=== PATIENT | female | born 1950 | race Caucasian/White ===

== ENCOUNTER 2020-03-22 18:46 | Observation (INO) | payer MEDICARE, OTHER, SELFPAY ==
[2020-03-22] VITALS (7 sets, daily range): BP systolic 107–159; BP diastolic 47–88; PULSE 88–112; RESP 16; TEMP 36.6–37.3; O2SAT 95–98; BMI 41.4
--- NOTE | 2020-03-22 19:18 | CT_ITS ---
We are attempting to reach an attending provider to discuss findings. An addendum with communication details will be sent when the communication is complete. HISTORY: PT STATED RLQ PAIN, HX BREAST CA, HTN TECHNIQUE: Helically acquired images were obtained of the abdomen and pelvis following the intravenous administration of 100 ML of Isovue 300 Iodinated contrast. 2D reformats. No oral contrast was administered. A radiation dose optimization technique was used for this scan. COMPARISON: None FINDINGS: # of images incl. paperwork: 462 LUNG BASES: Clear. CT abdomen: Multilevel degenerative disc disease with facet arthropathy.. The gallbladder remains. Liver, spleen, pancreas, and adrenal glands, are normal. The kidneys are normal. The aorta is normal. CT pelvis: No ascites is present. The the uterus and ovaries are not pathologically enlarged. The appendix is distended and filled with fluid with a large appendicolith. The appendix diameter is 18 mm. There is a surrounding indurated tissue without free air or abscess. The bladder is decompressed. Diverticulosis within the sigmoid colon without diverticulitis CT/Abdomen/Pelvis W IV Cont ONLY IMPRESSION: Acute nonperforated appendicitis with appendicolith. Scoliosis Individualized dose optimization techniques were used for this CT. at 2029 Reported and signed by: Josr Perez MD Electronically Signed: Josr Perez MD at 20:28 EDT Tel , Service support ,
[2020-03-22] MEDS: 0.9% Normal Saline 1,000 ML 1000 ML IV (19:31)
[2020-03-22] MEDS: Morphine 4 MG/ML Syringe IV ×2 (19:32→21:29)
[2020-03-22] MEDS: Ondansetron 4 MG/2 ML Vial IV (19:32)
--- NOTE | 2020-03-22 19:34 | ED.VIS.GI ---
History of Present Illness Chief Complaint: Abd Pain Informant: Patient - Abdominal Pain/Flank Pain Onset: Today Context: Gradual Onset Timing: Continuous Quality: Aching Location: RLQ Current Severity: Severe - Nausea/Vomiting/Emesis GI Symptom: Nausea, Vomiting - x1 Onset: Today Quality: Nonbilious - Diarrhea/Melena/Hematochezia GI Symptom: Negative for: Diarrhea, Melena, Hematochezia Associated Symptoms: Negative for: Dysuria, Frequency, Hematuria, Urgency Narrative: Patient is a 69-year-old female presenting with right lower quadrant abdominal pain. Patient states she noticed it this morning around 10:30 AM. She states that it started when they are driving in the car. It was more diffuse and then localized to her right lower quadrant. She said pain is become more persistent and severe as the days progressed. She has had associated nausea and one episode of yellow phlegm-like vomit. Her bowel movements been normal and she is had 2 bowel movements today. No black or blood in her stool. No urinary symptoms. She not take anything for the pain prior to arrival. She denies any history of any abdominal surgeries. She denies any urinary symptoms. No other complaints at this time. Past Medical History - Allergies and Home Meds Allergies/Adverse Reactions: Allergies quinapril [From Accupril] Adverse Reaction (Verified 03/22/20 18:47) COUGH Primary Care Physician: Queenie Bowling MD [Primary Care Provider] - Past Medical History: - - Hypertension, hypothyroid, history of breast cancer status post lumpectomy Surgical History: - - Breast lumpectomy- Dr. Pagan Lives: Spouse/ Significant Other Smoking Status: Never smoker Review of Systems General: Denies: Chills, Fever, Sweats Eyes: Denies: Visual changes - bilaterally, Diplopia ENT: Denies: Rhinorrhea, Sore throat Cardiovascular: Denies: Chest pain, Palpitations Respiratory: Denies: Dyspnea, Cough, Dyspnea on exertion Gastrointestinal: Reports: Abdominal pain, Nausea, Vomiting. Denies: Diarrhea, Melena, Hematochezia Genitourinary: Denies: Dysuria, Hematuria, Frequency Musculoskeletal: Denies: Back pain, Extremity Pain Skin: Denies: Rash, Wounds Neurological: Denies: Headache, Weakness, Numbness Physical Exam Vital Signs/Narrative: Vital Signs Temp Pulse Resp BP Pulse Ox 03/22/20 18:47 97.8 F 112 H 16 159/88 H 95 Inital Vital Signs reviewed: Yes General: Well nourished, Well developed, No Acute Distress Head: Normocephalic, Atraumatic Eyes: Perrl, EOMI ENT: Moist mucous membranes, No rhinorrhea Neck: Supple, Nontender Cardiovascular: Regular rate, Regular rhythm, No murmurs Respiratory: No distress, CTA bilaterally, Chest nontender Abdomen: Soft, Nondistended, Tender - Right lower quadrant, Hypoactive bowel sounds, Rovsig's sign, - - Pain at McBurney's point. Negative for: Rebound tenderness, Psoas sign, Obturator sign Back: Nontender, Normal Inspection. Negative for: CVA tenderness Extremities: Nontender, No edema Skin: Normal color, No rash Neurological: Alert, Oriented x3, Cranial nerves II-XII grossly intact, Normal Strength, Normal Sensation Psychological: Normal affect, Normal Mood Diagnostic/Tx/Re-eval Clinical Impression(s) from Imaging Studies Abdomen/Pelvis CT 03/22/20 19:18 IMPRESSION: Acute nonperforated appendicitis with appendicolith. Scoliosis Individualized dose optimization techniques were used for this CT. at 9 Reported and signed by: Josr Perez MD Electronically Signed: Josr Perez MD at 20:28 EDT Tel , Service support , Laboratory Data 03/22/20 03/22/20 03/22/20 18:20 18:20 19:45 WBC 14.5 H RBC 4.44 Hgb 12.9 Hct 39.4 MCV 88.7 MCH 29.1 MCHC 32.7 RDW Std Deviation 42.8 RDW Coeff of Mey 13.2 Plt Count 233 MPV 11.2 Immature Gran % (Auto) 0.400 Neut % (Auto) 85.5 H Lymph % (Auto) 7.2 L [place] % (Auto) 6.4 Eos % (Auto) 0.3 Baso % (Auto) 0.2 Absolute Neuts (auto) 12.4 H Absolute Lymphs (auto) 1.05 Nucleated RBC % 0 Sodium 139 Potassium 3.2 L Chloride 103 Carbon Dioxide 28.0 Anion Gap 8 BUN 14 Creatinine 0.84 Estim Creat Clear Calc 60.60 Est GFR (MDRD) Af Amer 86 Est GFR (MDRD) Non-Af 71 BUN/Creatinine Ratio 16.7 Glucose 164 H Calcium 9.3 Total Bilirubin 0.60 AST 20 ALT 24 Alkaline Phosphatase 94 Total Protein 7.7 Albumin 3.6 Globulin 4.1 Albumin/Globulin Ratio 0.9 Lipase 96 Urine Color Yellow Urine Clarity Sl. Cloudy Urine pH 5.0 Ur Specific [place] 1.020 Urine Protein Negative Urine Glucose (UA) Normal Urine Ketones 5 H Urine Occult Blood 10 H Urine Nitrite Negative Urine Bilirubin Negative Urine Urobilinogen Normal Ur Leukocyte Esterase 500 H Urine RBC 0-5 SEEN Urine WBC 5-10 SEEN Ur Squamous Epith Cells 0-5 SEEN Urine Bacteria 0 SEEN Urine Mucus 0 SEEN - Medical Decision Making Patient evaluated for 1 day of worsening right lower quadrant abdominal pain. Physical exam is consistent with appendicitis however patient does not have an acute abdomen or peritoneal signs. She does have a leukocytosis. Patient does have elevated leukoesterase but minimal white blood cells in her urine. I think this is more reactive. CT of the abdomen pelvis is consistent with acute appendicitis with an enlarged appendix 18 mm in diameter. Initially contacted the patient's personal surgeon, Dr. Pagan who deferred care to surgery on-call, Dr. Bush. Eleazar came to the emergency room to evaluate the patient and is planning for surgical removal of the appendix. Patient is given IV Zosyn and is redosed with morphine in the ER. Per hospital protocol, Pre-op COVID test is sent. Patient is stable at time of disposition. ED Disposition - Plan for ED Patient: Disposition: Acute Care Hospital [facility] Diagnosis: Acute appendicitis, Leukocytosis Referrals: Queenie Bowling MD [Primary Care Provider] -
[2020-03-22 19:38] LABS: Absolute Lymphocyte Count 1.05 X10^3/uL (0.83-4.51); Absolute Neutrophil Count 12.4 X10^3/uL (2.0-7.7); Basophil# 0.03 X10^3/uL; Basophil% 0.2 % (0-1); Eosinophil# 0.04 X10^3/uL; Eosinophils% 0.3 % (0-5); Hematocrit 39.4 % (37-47); Hemoglobin 12.9 g/dL (12.0-15.0); Lymphocyte # 1.05 X10^3/ul (4.0); Lymphocyte % 7.2 % (19-41); Mean Corp Hgb Conc 32.7 g/dL (32-36); Mean Corpuscular Hgb 29.1 pg (27.0-32.0); Mean Corpuscular Volume 88.7 fL (81-99); Mean Platelet Vol. 11.2 fl (6.2-12.0); Monocyte# 0.93 X10^3/uL; Monocyte% 6.4 % (0-10); NRBC Flagged by Analyzer 0 % (0-5); Neutrophil # 12.38 X10^3/uL (2.7-7.7); Neutrophil % 85.5 % (47-70); Platelet Count 233 K/mm3 (150-450); RBC Distribution Width CV 13.2 % (11.6-14.6); RBC Distribution Width SD 42.8 fl (35.1-43.9); Red Blood Count 4.44 M/mm3 (4.2-5.4); White Blood Count 14.5 K/mm3 (4.4-11.0)
[2020-03-22 19:51] LABS: ALB/GLOB Ratio 0.9 RATIO (0.9-2.4); AST(SGOT) 20 U/L (15-37); Alanine Aminotransfer ALT/SGPT 24 U/L (13-56); Albumin, Serum 3.6 g/dL (3.2-5.0); Alkaline Phosphatase 94 U/L (45-117); Anion Gap 8 (5-15); BUN 14 mg/dL (7-18); BUN/Creat Ratio 16.7 RATIO (10-20); Calcium,Total 9.3 mg/dL (8.5-10.1); Chloride 103 mmol/L (98-107); Creatinine, Serum 0.84 mg/dL (0.55-1.02); EST Glomerular Filtration Rate 71 mL/min (>60); Est Glom Filt Rate - Afr Amer 86 mL/min (>60); Globulin 4.1 g/dL (2.2-4.2); Glucose 164 mg/dL (74-106); Lipase 96 U/L (73-393); Potassium 3.2 mmol/L (3.5-5.1); Protein, Total 7.7 g/dL (6.4-8.2); Sodium Level 139 mmol/L (136-145)
[2020-03-22 19:53] LABS: Bacteria 0 SEEN /hpf (None Seen); Mucous, Urine 0 SEEN /hpf (<or=2+)
[2020-03-22 19:54] LABS: Color, Urine Yellow (Yellow); Glucose, Dipstick Normal (Normal); Ketone-Dipstick 5 mg/dl (Negative); Leukocyte Esterase-Dipstick 500 /ul (Negative); Nitrite-Dipstick Negative (Negative); Occult Blood-Urine 10 /ul (Negative); Protein-Dipstick Negative (Negative); Urine Bilirubin Dipstick Negative (Negative); Urine Clarity Sl. Cloudy (Clear); Urine Urobilinogen Normal (Normal)
[2020-03-22 20:00] LABS: White Blood Cells 5-10 SEEN /hpf (0-5)
[2020-03-22 20:01] LABS: Red Blood Cells-Urine 0-5 SEEN /hpf (0-5); Squamous Epithelial Cells - UA 0-5 SEEN /hpf (5-10)
--- NOTE | 2020-03-22 21:18 | PCM.CONS.GEN ---
Problem List (1) Acute appendicitis Status: Acute Qualifiers: Acute appendicitis type: with localized peritonitis Appendicitis gangrene presence: unspecified whether gangrene present Appendicitis perforation presence: unspecified whether perforation present Appendicitis abscess presence: without abscess Qualified Code(s): K35.30 - Acute appendicitis with localized peritonitis, without perforation or gangrene Reason for Consult Date of Consultation: 03/22/20 History of Present Illness: Patient is a 69-year-old female presenting with right lower quadrant abdominal pain. Patient states she noticed it this morning around 10:30 AM. She states that it started when they are driving in the car. It was more diffuse and then localized to her right lower quadrant. She said pain is become more persistent and severe as the days progressed. She has had associated nausea and one episode of yellow phlegm-like vomit. Her bowel movements been normal and she is had 2 bowel movements today. No black or blood in her stool. No urinary symptoms. She not take anything for the pain prior to arrival. She denies any history of any abdominal surgeries. She denies any urinary symptoms. No other complaints at this time. CT pelvis: No ascites is present. The the uterus and ovaries are not pathologically enlarged. The appendix is distended and filled with fluid with a large appendicolith. The appendix diameter is 18 mm. There is a surrounding indurated tissue without free air or abscess. The bladder is decompressed. Diverticulosis within the sigmoid colon without diverticulitis 03/22/202027 Date cc: Queenie Bowling MD; Dr. Isamar Dhaliwal, DO ~* Signed ADDENDUM by Dr. Josr Perez MD on 03/22/[address]/Abdomen/Pelvis W IV Cont ONLY IMPRESSION: Acute nonperforated appendicitis with appendicolith. Scoliosis Individualized dose optimization techniques were used for this CT. at 2028 Reported and signed by: Josr Perez MD Past Medical History Allergies quinapril [From Accupril] Adverse Reaction (Verified 03/22/20 18:47) COUGH Home Medications: Ambulatory Orders Medication Instructions Recorded Cholecalciferol (VIT D3) [Vitamin 1,000 unit PO DAILY 08/06/16 D] Levothyroxine [Synthroid] 88 mcg PO DAILY 08/06/16 Metoprolol Tartrate [Lopressor 50 mg PO BID 08/06/16 (Beta Anthony)] Potassium Chloride [Klor-Con 10] 10 meq PO DAILY 08/06/16 Amlodipine [Norvasc] 5 mg PO DAILY 03/22/20 Letrozole 1 tab PO DAILY 03/22/20 Losartan Potassium [Cozaar] 200 mg PO DAILY 03/22/20 Surgical History: - - Breast lumpectomy- Dr. Pagan Lives: Spouse/ Significant Other Smoking Status: Never smoker - *Family History Maternal History Items: No pertinent history Review of Systems Constitutional: Reports: Anorexia, Chills Cardiovascular: Denies: Chest Pain, Chest Pressure, Chest Tightness, Palpitations Respiratory: Denies: Cough, Hemoptysis, Shortness of breath at rest, Shortness of breath upon exertion, Wheezing Gastrointestinal: Reports: Abdominal Pain. Denies: Hematemesis, Hematochezia, Nausea, Vomiting Patient Problems: Active and Suspected Problems Acute appendicitis (Acute) Leukocytosis (Acute) - Physical Exam Vitals/I&O's: Vital Signs Temp Pulse Resp BP Pulse Ox 97.8 F 112 H 16 159/88 H 95 03/22/20 18:47 03/22/20 18:47 03/22/20 18:47 03/22/20 18:47 03/22/20 18:47 Oxygen Delivery Method Room Air Weight: 264 lb 8.875 oz Body Mass Index (BMI) 41.4 General: Alert, Oriented x3 HEENT: Atraumatic, PERRLA, EOMI, Normocephalic Neck: Supple, No JVD Lungs: Clear to auscultation Cardiovascular: Regular rate, Regular Rhythm, No murmurs Abdomen: Obese, Tender - Patient does have peritoneal signs. Positive Rovsing sign. Skin: No rashes, No breakdown Lymphatic: No Cervical, Supraclavicular, or Inguinal Adenopathy Laboratory Results 03/22/20 18:20: WBC 14.5 H, RBC 4.44, Hgb 12.9, Hct 39.4, MCV 88.7, MCH 29.1, MCHC 32.7, RDW Std Deviation 42.8, RDW Coeff of Mey 13.2, Plt Count 233, MPV 11.2, Immature Gran % (Auto) 0.400, Neut % (Auto) 85.5 H, Lymph % (Auto) 7.2 L, [place] % (Auto) 6.4, Eos % (Auto) 0.3, Baso % (Auto) 0.2, Absolute Neuts (auto) 12.4 H, Absolute Lymphs (auto) 1.05, Nucleated RBC % 0 03/22/20 18:20: Sodium 139, Potassium 3.2 L, Chloride 103, Carbon Dioxide 28.0, Anion Gap 8, BUN 14, Creatinine 0.84, Estim Creat Clear Calc 60.60, Est GFR (MDRD) Af Amer 86, Est GFR (MDRD) Non-Af 71, BUN/Creatinine Ratio 16.7, Glucose 164 H, Calcium 9.3, Total Bilirubin 0.60, AST 20, ALT 24, Alkaline Phosphatase 94, Total Protein 7.7, Albumin 3.6, Globulin 4.1, Albumin/Globulin Ratio 0.9, Lipase 96 03/22/20 19:45: Urine Color Yellow, Urine Clarity Sl. Cloudy, Urine pH 5.0, Ur Specific [place] 1.020, Urine Protein Negative, Urine Glucose (UA) Normal, Urine Ketones 5 H, Urine Occult Blood 10 H, Urine Nitrite Negative, Urine Bilirubin Negative, Urine Urobilinogen Normal, Ur Leukocyte Esterase 500 H, Urine RBC 0-5 SEEN, Urine WBC 5-10 SEEN, Ur Squamous Epith Cells 0-5 SEEN, Urine Bacteria 0 SEEN, Urine Mucus 0 SEEN 03/22/20 20:58: COVID-19 (LEONID) Pending Assessment/Plan All Active Problems Acute appendicitis (Acute) Leukocytosis (Acute) We did perform a laparoscopic appendectomy on the patient. Risk benefits were reviewed with the patient they include bleeding infection possible delayed abscess. Patient understands that she could have a stump leak patient also understands she may need to have a drain with this quite possibly could be done in an open fashion. In addition we also talked about blood clots heart attacks pneumonia strokes up to including or sequelae such as pulmonary embolisms. All questions asked were answered and she agrees to proceed. Procedure Criteria Risk to Patient if Procedure Delayed: Risk of rapidly worsening to severe symptoms if delayed Office Visits / Consults: 11305 IP Consult L4 - Modifier 57
--- NOTE | 2020-03-22 22:05 | ED.RN ---
REPORT GIVEN TO BERNIE SOLITARIO.
--- NOTE | 2020-03-22 22:15 | APP_PTH ---
PATIENT: CURT PEREZ LOC: MS3 U#:[id number] AGE/SX: 69/F ROOM: MI303 RE03/22/[address]: Dr. John Bush MD : 1950 BED: 1 DIS: 03/23/2020 SPEC #: [id number] RECD: 03/23/20 08:01 STATUS: OIRN REAlonso #: [id number] MIRIAN: 03/22/20 22:[address]: John Bush DEPT: SURGICAL PATHOLOGY RECD BY: Wayne Valentino ENTERED: 03/23/20 09:12 SP TYPE: APPENDIX OTHR DR: Queenie Bowling MD Tissues: Appendix, NOS Procedures: Surgery Specimen Level III HEADER OPERATION: Laparoscopic appendectomy PRE-OP DIAGNOSIS: Acute appendicitis TISSUE SUBMITTED: Appendix MICROSCOPIC DIAGNOSIS Appendix, appendectomy: Acute appendicitis. Acute serositis. AM:scooter 03/24/20 MICROSCOPIC DESCRIPTION Slides are reviewed. GROSS DESCRIPTION Received is one container labeled with the patient's name and designated appendix. The specimen consists of an appendix measuring 8 cm in length and up to 1.5 cm in diameter. The attached periappendiceal adipose tissue measures up to 2 cm in width. The serosa is covered focally with cutler, purulent exudate. No obvious perforation is identified. The lumen contains material mixed with hemorrhagic fluid. No fecalith is identified. Numerical Control Tool Programmer sections are submitted in one cassette. / SJ:scooter 03/23/20 TC:2 CPT: 35665
--- NOTE | 2020-03-22 22:35 | OP.PCM_ITS ---
Problem List (1) Acute appendicitis Status: Acute Qualifiers: Acute appendicitis type: with localized peritonitis Appendicitis gangrene presence: unspecified whether gangrene present Appendicitis perforation presence: unspecified whether perforation present Appendicitis abscess presence: without abscess Qualified Code(s): K35.30 - Acute appendicitis with localized peritonitis, without perforation or gangrene Report of Operation Date of Procedure: 03/22/20 Pre-Operative Diagnosis: Acute appendicitis Post-Operative Diagnosis: Same Surgery/Procedure Performed:: Laparoscopic appendectomy Type of Anesthesia:: General Anesthesiologist: Brianna Briggs Specimen's removed: Appendix Estimated Blood Loss (mL): < 25 cc Description of Procedure: Patient was brought into the operating room. Placed in the supine position. Under excellent general trach intubation the abdomen was sterilely prepped and draped in usual fashion. Local was injected infraumbilically. Incision was made. Dissection was carried down to the fascia. Fascia was grasped with a [place]. Varies needle was placed inside the abdomen. The abdomen was insufflated to 15 torr. A 10/12 trocar was placed at the umbilical area. Suprapubic #5 trocar was placed left lower quadrant #5 trocar was placed both of these under direct visualization without injury to underlying structures. Patient was placed in the headdown and rotated to the left position patient was noted to have acute appendicitis I was able to come down on the mesoappendix with the Enseal down to the base of the appendix I then transected the base of the appendix with a 45 linear cutter. I placed a specimen a specimen bag delivered through the umbilical port without difficulty. I irrigated the right lower quadrant good pneumostasis was noted stump was not bleeding and it looked good as did the mesoappendix area that I used the Enseal on I irrigated out the pelvis wispy fluid was seen but there was no pus identified. I ran the small bowel no Meckel's diverticulum was identified. The air was deflated trochars were removed I closed the fascia the umbilical port with a [id number] stitch of 0 Vicryl. Skin incisions were closed with subcuticular stitches of 4- 0 Monocryl. Steri-Strips were applied. Sterile dressings were applied. Patient tolerated the procedure well. - Admit VTE Documentation VTE Present on Admission: No VTE Mechan Device Prophylaxis: SCD's VTE Pharm Prophylaxis ordered?: No Reason prophylaxis not ordered:: Treatment Not Indicated [id number]: [id number] Laparoscopy appendectomy
[2020-03-22] MEDS: Bupivacaine Mpf 0.5% 30 ML VIAL (23:00)
[2020-03-23 00:20] VITALS: BP 133/71; PULSE 91; RESP 16; TEMP 36.9; O2SAT 93
[2020-03-23] MEDS: 0.9% Normal Saline 1,000 ML 75 ML IV (00:30)
[2020-03-23 01:16] VITALS: BMI 41.4
[2020-03-23 01:28] VITALS: BMI 41.1
[2020-03-23 02:13] VITALS: BP 131/66; PULSE 91; RESP 18; TEMP 36.7; O2SAT 92; BMI 41.1
[2020-03-23 04:12] VITALS: BP 124/74; PULSE 91; RESP 16; TEMP 36.6; O2SAT 95; BMI 41.1
[2020-03-23] MEDS: Levothyroxine 88 MCG Tablet PO (05:56)
[2020-03-23 06:54] LABS: Absolute Neutrophil Count 11.3 X10^3/uL (2.0-7.7); Basophil# 0.01 X10^3/uL; Basophil% 0.1 % (0-1); Hematocrit 37.3 % (37-47); Lymphocyte % 4.9 % (19-41); Mean Corp Hgb Conc 32.2 g/dL (32-36); Mean Corpuscular Volume 90.1 fL (81-99); Mean Platelet Vol. 11.3 fl (6.2-12.0); Monocyte# 0.23 X10^3/uL; Monocyte% 1.9 % (0-10); NRBC Flagged by Analyzer 0 % (0-5); Neutrophil # 11.29 X10^3/uL (2.7-7.7); Neutrophil % 92.5 % (47-70); POSITIVE DIFFERENTIAL YES; Platelet Count 221 K/mm3 (150-450); RBC Distribution Width CV 13.2 % (11.6-14.6); RBC Distribution Width SD 43.6 fl (35.1-43.9); Red Blood Count 4.14 M/mm3 (4.2-5.4); White Blood Count 12.2 K/mm3 (4.4-11.0)
[2020-03-23 07:02] LABS: Differential Indicated SCAN CRITERIA MET
[2020-03-23 07:20] LABS: Differential Comment SCANNED; Hypochromasia RARE
[2020-03-23 07:24] LABS: ALB/GLOB Ratio 0.9 RATIO (0.9-2.4); AST(SGOT) 21 U/L (15-37); Alanine Aminotransfer ALT/SGPT 20 U/L (13-56); Albumin, Serum 3.3 g/dL (3.2-5.0); Alkaline Phosphatase 84 U/L (45-117); Anion Gap 8 (5-15); BUN 13 mg/dL (7-18); BUN/Creat Ratio 16.4 RATIO (10-20); Calcium,Total 8.2 mg/dL (8.5-10.1); Chloride 103 mmol/L (98-107); Creatinine, Serum 0.79 mg/dL (0.55-1.02); EST Glomerular Filtration Rate 76 mL/min (>60); Est Glom Filt Rate - Afr Amer 92 mL/min (>60); Estimated Creatinine Clearance 50.91 ml/min; Globulin 3.7 g/dL (2.2-4.2); Glucose 197 mg/dL (74-106); Potassium 3.3 mmol/L (3.5-5.1); Sodium Level 138 mmol/L (136-145)
[2020-03-23 08:37] VITALS: BP 153/78; PULSE 86; RESP 16; TEMP 36.8; O2SAT 97
[2020-03-23 08:55] VITALS: PULSE 86
[2020-03-23] MEDS: Losartan Potassium 100 MG Tablet PO (08:55)
[2020-03-23] MEDS: Metoprolol Tartrate 50 MG Tablet PO (08:55)
[2020-03-23] MEDS: amLODIPine 5 MG Tablet PO (08:55)
--- NOTE | 2020-03-23 10:50 | DCINST_ITS ---
Discharge Diet: Light diet - advance as tolerated - if you have questions about your diet instructions, please talk to you doctor. Discharge Activity: May Not Drive - for 3-5 days or while taking narcotic pain meds. May shower in (days): 1 Call your doctor if your incision/area has: Continuous Slow Oozing, Sudden Increased Bleeding, Increased Pain/ Swelling, Increased Redness, Foul Smelling Discharge Call your doctor if you observe: Fever of 101 or Higher Suture Line Care: Avoid Pulling/Pushing, Avoid Pinching/Bending Additional Dressing/Incision Instructions:: Keep dressing clean and dry. Change or remove dressing in 2 days. Leave steri strips for 1 week. May protect with a gauze bandaid. Medications to take at Discharge Cholecalciferol (VIT D3) [Vitamin D] 1,000 unit PO DAILY 08/06/16 Levothyroxine [Synthroid] 88 mcg PO DAILY 08/06/16 Metoprolol Tartrate [Lopressor (Beta Anthony)] 50 mg PO BID 08/06/16 Potassium Chloride [Klor-Con 10] 10 meq PO DAILY 08/06/16 Amlodipine [Norvasc] 5 mg PO DAILY 03/22/20 Letrozole 1 tab PO DAILY 03/22/20 Losartan Potassium [Cozaar] 200 mg PO DAILY 03/22/20 Oxycodone HCl/Acetaminophen [Percocet 5/325] 1 - 2 tab PO Q4H PRN PRN 6 Days #30 tab 03/23/20 Oxycodone HCl/Acetaminophen [Percocet 5/325] 1 - 2 tablet PO Q4H PRN PRN 6 Days #30 tablet 03/23/20 Allergies/Adverse Reactions: Allergies quinapril [From Accupril] Adverse Reaction (Verified 03/22/20 18:47) COUGH The following prescriptions were given: Oxycodone HCl/Acetaminophen [Percocet 5/325] 1 - 2 tab PO Q4H PRN PRN 6 Days #30 tab PRN Reason: Pain Oxycodone HCl/Acetaminophen [Percocet 5/325] 1 - 2 tablet PO Q4H PRN PRN 6 Days #30 tablet PRN Reason: Pain Transmission Status: Received by TONY PENA-[address] [facility] Primary Care Physician: Queenie Bowling MD [Primary Care Provider] - Test Results: Test results from this visit will be discussed in further detail at your follow- up appointment, if applicable. Please Follow Up With: John Bush MD - [phone] When: Call to make a follow up appointment with your doctor in 1 week.
[2020-03-23 14:06] VITALS: BP 127/70; PULSE 69; RESP 16; TEMP 36.8; O2SAT 94
== END 2020-03-23 14:47 | disposition home or self-care (01) ==
LOC: ED 19:59 → SDC 20:55 → AC 20:56 → MS3 03-23 00:45
PROVIDERS: Admitting Provider Surgery; Emergency Provider Emergency Medicine; PCP Internal Medicine; Visit Provider Surgery
PROC: 0DTJ4ZZ Resection of Appendix, Percutaneous Endoscopic Approach (ICD-10-PCS; CPT 44970; principal; 2020-03-22 22:15)
DX: K35.31 Acute appendicitis with localized peritonitis and gangrene, without perforation (principal); E03.9 Hypothyroidism, unspecified; Z79.899 Other long term (current) drug therapy; I10 Essential (primary) hypertension; K58.9 Irritable bowel syndrome, unspecified; E78.00 Pure hypercholesterolemia, unspecified; E66.01 Morbid (severe) obesity due to excess calories; Z68.41 Body mass index [BMI] 40.0-44.9, adult
CPT/HCPCS: 44970; 36415; 74177; 80053; 81001; 83690; 85025; 87635; 88304; 96361; 96365; 96366; 96375; 96376; 99218; 99284; G2023; J7030; Q9967; C1760; G0378; J2405; U0003

== ENCOUNTER 2024-04-28 15:57 | Emergency (ER) | payer MEDICARE, OTHER, SELFPAY ==
[2024-04-28 15:57] VITALS: BP 159/78; PULSE 70; RESP 16; TEMP 36.6; O2SAT 99; BMI 46.1
--- NOTE | 2024-04-28 16:14 | CT_ITS ---
INDICATION: Trauma, fall EXAMINATION: CT BRAIN - CT Head or Brain W/O Contrast Injection TECHNIQUE: Multiple axial images were obtained of the head without intravenous contrast. A radiation dose optimization technique was used for this scan. IV Contrast dosage and agent: None. COMPARISON: None. FINDINGS: BRAIN PARENCHYMA: No intra- or extra-axial hemorrhage. No evidence of acute infarct. No intracranial mass or mass effect. There is preservation of the cutler/white matter interface. Posterior fossa structures are unremarkable. CSF SPACES: Appropriate for age. No hydrocephalus. Basal cisterns are patent. CALVARIUM, SKULL BASE, PARANASAL SINUSES AND MASTOID AIR CELLS: Scattered mucoperiosteal thickening. No discrete lytic or blastic abnormalities. CT/Brain/Head without Contrast IMPRESSION: No acute intracranial findings. Electronically Signed: Wilfredo Mims MD at 16:51 EDT ,
--- NOTE | 2024-04-28 16:15 | ED.VIS.FALL ---
HPI HPI - Fall History of Present Illness Chief Complaint: Fall Informant: patient Occured/Mechanism Occurred: Today Narrative Narrative: Patient presents after a trip and fall at home. She was outside her home and tripped walking from the grass up onto the sidewalk. She fell forward injuring her left knee and the right side of her head. She did not lose consciousness. She is not on anticoagulants. [facility] Medical History (Updated 04/28/24 @ 17:[address] Bonita Ross MD) History of breast cancer Hypothyroidism Hypertension Home Medications ?Medication ?Instructions ?Recorded ?Last Taken ?Type cholecalciferol (vitamin D3) 25 1,000 unit PO DAILY supplement 08/06/16 03/22/20 08:00 History mcg (1,000 unit) tablet levothyroxine 88 mcg tablet 88 mcg PO DAILY thyroid 08/06/16 03/22/20 08:00 History metoprolol tartrate 50 mg tablet 50 mg PO BID BP 08/06/16 03/22/20 08:00 History potassium chloride 10 mEq 10 meq PO DAILY supplement 08/06/16 03/22/20 08:00 History tablet,extended release amlodipine 5 mg tablet 5 mg PO DAILY BP 03/22/20 03/22/20 08:00 History letrozole 2.5 mg tablet 1 tab PO DAILY chemo 03/22/20 03/22/20 08:00 History losartan 100 mg tablet 200 mg PO DAILY BP 03/22/20 03/22/20 08:00 History Allergy/AdvReac Type Severity Reaction Status Date / Time quinapril (From Accupril) AdvReac COUGH Verified 04/28/24 16:01 Surgical History History of laparoscopic appendectomy Social History Smoking Status: Never smoker ROS ROS ED Constitutional Constitutional ED: Denies chills or fever(s) Eyes Eyes: Denies change in vision or discharge from eye(s) ENT ENT ED: Denies discharge from eye(s), rhinorrhea or sore throat Cardiovascular Cardiovascular: Denies chest pain Respiratory/Chest Respiratory/Chest: Denies cough or dyspnea Gastrointestinal Gastrointestinal: Denies abdominal pain, nausea or vomiting Genitourinary Genitourinary ED: Denies dysuria Musculoskeletal Musculoskeletal: Reports extremity pain; Denies back pain or neck pain Integumentary Reports Abrasions; Denies rash Neurologic Neurologic: Denies headache(s) or weakness Psychiatric Psychiatric: Denies anxiety or depression Allergic/Immunologic Allergic/Immunologic ED: Denies lip swelling or urticaria EXAM Physical Exam Const Vital Signs: 04/28/24 15:57 04/28/24 16:05 Temperature 98 F Temperature Source Oral Pulse Rate 70 Respiratory Rate 16 Respiratory Effort Normal Non-Labored Blood Pressure 159/78 H Blood Pressure Mean 105 Pulse Ox 99 Oxygen Delivery Method Room Air Positive well nourished and well developed General Appearance ED: well developed HEENT HEENT Narrative: Small hematoma noted to the right forehead just superior to the lateral eyebrow. No laceration appreciated. Eyes PERRL and EOMs intact bilaterally Neck full ROM Neck Narrative: No C-spine tenderness. Chest Wall inspection of chest normal and palpation of chest normal Resp normal respiratory effort and clear to auscultation bilaterally Cardio regular rate and regular rhythm GI non-tender Palpation: soft Extremity Extremity Narrative: Superficial abrasions with edema noted to the anterior left knee. No bony tenderness. Good distal pulses. No tenderness at the hip. Neuro oriented x3, moves all extremities, no focal motor deficits and no sensory deficits noted Psych mental status grossly normal MDM MDM MDM Narrative Medical decision making narrative: CT scan of the head will be obtained to evaluate for any acute intracranial bleed, edema. Left knee x-rays will be obtained to evaluate for any fracture, effusion. Radiography Diagnostic Testing: Clinical Impression(s) from Imaging Studies Brain CT 04/28/24 16:14 IMPRESSION: No acute intracranial findings. Electronically Signed: Wilfredo Mims MD at 16:51 EDT , Knee X-Ray 04/28/24 16:30 IMPRESSION: Degenerative changes without acute bony abnormality. Electronically Signed: Wilfredo Mims MD at 16:58 EDT , Treatment and Re-Evaluation Narrative: Left knee x-rays per my interpretation for chronic changes with no evidence of fracture. Radiology interpretation reviewed and agrees. CT scan of the head reveals no acute intracranial findings. On repeat evaluation patient resting comfortably. Test results discussed with her. I will give her a dose of Tylenol for mild headache that is starting to develop. She will continue supportive care at home. Return instructions provided. Discharge Plan Triage Chief Complaint: Fall ED Provider: Bonita Ross Dx/Rx/DC Orders Clinical Impression: Fall, Closed head injury, Forehead contusion, Abrasion of knee Instructions: ED Contusion, Lower Extremity, ED Mechanical Fall, ED Head Injury (Adult) Prescriptions: No Action potassium chloride 10 MEQ tablet extended release 10 meq PO DAILY levothyroxine 88 MCG tablet 88 mcg PO DAILY metoprolol tartrate 50 MG tablet 50 mg PO BID cholecalciferol (vitamin D3) 1,000 UNIT tablet 1,000 unit PO DAILY amlodipine 5 MG tablet 5 mg PO DAILY letrozole 2.5 mg tablet 1 tab PO DAILY Patient Comments: TAKE 1 TABLET BY MOUTH EVERY DAY losartan 100 MG tablet 200 mg PO DAILY Primary Care Provider: Queenie Bowling Referrals: Queenie Bowling MD [[facility]] - 1-2 Weeks Print Language: Latvian Disposition Disposition: Home, Self Care
--- NOTE | 2024-04-28 16:30 | RAD_ITS ---
INDICATION: Trauma, fall, left knee pain and bruising EXAMINATION/TECHNIQUE: X-RAY - LEFT XR Knee Complete 4 Views or More 4 VIEWS COMPARISON: None. FINDINGS: SOFT TISSUES: Prepatellar soft tissue swelling. No radiopaque foreign body. BONES/JOINTS: No acute fracture. Joint spaces anatomically aligned with moderate tricompartmental degenerative changes. No sclerotic or destructive changes observed. RAD/Knee 4 or More Views IMPRESSION: Degenerative changes without acute bony abnormality. Electronically Signed: Wilfredo Mims MD at 16:58 EDT ,
[2024-04-28] MEDS: Acetaminophen 500 MG Tablet 1000 MG PO (17:12)
== END 2024-04-28 17:13 | disposition home or self-care (01) ==
PROVIDERS: Emergency Provider Emergency Medicine; PCP Internal Medicine; Visit Provider Emergency Medicine
DX: S00.83XA Contusion of other part of head, initial encounter (principal); S80.212A Abrasion, left knee, initial encounter; W10.1XXA Fall (on)(from) sidewalk curb, initial encounter
CPT/HCPCS: 70450; 73564; 99282